=== PATIENT | female | born 1975 | race African-American/Black ===

== ENCOUNTER 2017-11-26 19:08 | Emergency (ER) | payer OTHER ==
[~2017-11-26] VITALS: Ht 165.1 cm; Wt 82.6 kg
[~2017-11-26 19:08] MED LIST: ERYTHROMYC1 APPLICAT RIGHT EYE; MUCUS RELIEF600 M1 PO; NOHOMEMEDS
[2017-11-26 20:07] LABS: BASOPHIL (%) 0.4 % (0-1); EOSINOPHIL (%) 2.6 % (0-5); EOSINOPHIL COUNT 0.3 K/uL (0-0.3); HEMATOCRIT 28.3 % (36.0-46.0); HEMOGLOBIN 9.4 G/DL (11.9-15.5); IMMATURE GRANULOCYTE (%) 0.3 % (0.0-0.7); LYMPHOCYTE (%) 15.1 % (15-42); LYMPHOCYTE COUNT 1.4 K/uL (1.0-2.8); MCH 26.7 PG (29.0-34.0); MCHC 33.2 G/DL (30.0-36.0); MCV 80.4 FL (83-99); MONOCYTE (%) 7.3 % (3-12); MONOCYTE COUNT 0.7 K/uL (0-0.8); NEUTROPHIL (%) 74.3 % (45-76); NEUTROPHIL COUNT 7.1 K/uL (1.8-6.4); PLATELET COUNT 243 K/uL (156-360); RBC DIS.WIDTH-CV 14.2 % (11.8-14.6); RBC DIS.WIDTH-SD 41.5 % (39-53); RED BLOOD COUNT 3.52 M/uL (3.80-5.20); WHITE BLOOD COUNT 9.5 K/uL (4.1-10.2)
[2017-11-26 20:19] LABS: APPEARANCE SL.HAZY ((CLEAR)); BILIRUBIN NEGATIVE; BLOOD NEGATIVE; COLOR YELLOW ((YELLOW)); GLUCOSE (STRIP) NEGATIVE; KETONES 20; LEUKOCYTES NEGATIVE; NITRITE NEGATIVE; PROTEIN (STRIP) 30; UROBILINOGEN 0.2 MG/DL (0.2-1.0)
[2017-11-26 20:20] LABS: ALBUMIN 3.8 g/dL (3.2-4.8); CHLORIDE 104 mEq/L (99-109); POTASSIUM 3.8 mEq/L (3.7-5.4); SODIUM 137 mEq/L (136-147)
[2017-11-26 20:22] LABS: GLUCOSE 105 mg/dL (70-99); TOTAL PROTEIN 7.4 g/dL (6.4-8.3)
[2017-11-26 20:24] LABS: TOTAL BILIRUBIN 0.3 mg/dL (0.0-1.0)
[2017-11-26 20:26] LABS: ALKALINE PHOSPHATASE 53 IU/L (3-129); CREATININE 0.6 mg/dL (0.6-1.3); GFR ESTIMATE (CALCULATED) > 59 mL/min/
[2017-11-26 20:27] LABS: AST (GOT) 41 IU/L (2-34); UREA NITROGEN (BUN) 15 mg/dL (9-23)
[2017-11-26 20:29] LABS: ALT (GPT) 43 IU/L (3-49)
[2017-11-26 20:38] LABS: TROP-I INTERPRETATION NEGATIVE; TROPONIN-I < 0.01 ng/mL (0.0-0.30)
[2017-11-26 20:58] LABS: BACTERIA 1+ /HPF; EPITHELIAL CELLS 1+ /HPF; MUCUS NONE SEEN /LPF; RED BLOOD CELLS 0-5 /HPF (0-5); UCUL ADDED? NO; WHITE BLOOD CELLS 0-5 /HPF (0-5)
[2017-11-27 00:25] VITALS: BP 113/51
== END 2017-11-27 00:52 | disposition home or self-care (01) ==
LOC: EME 19:08
PROVIDERS: Physician Assistant
DX: O12.02 Gestational edema, second trimester (principal); O99.89 Other specified diseases and conditions complicating pregnancy, childbirth and the puerperium; R01.1 Cardiac murmur, unspecified; R51 Headache; R03.0 Elevated blood-pressure reading, without diagnosis of hypertension; O99.012 Anemia complicating pregnancy, second trimester; D64.9 Anemia, unspecified; Z53.20 Procedure and treatment not carried out because of patient's decision for unspecified reasons; Z3A.18 18 weeks gestation of pregnancy; Z88.0 Allergy status to penicillin; Z87.891 Personal history of nicotine dependence
CPT/HCPCS: 71046; 80053; 81003; 83880; 84484; 85025; 93005; 93970; 99281; 99285

== ENCOUNTER 2017-12-04 09:34 | Emergency (ER) | payer OTHER ==
[~2017-12-04] VITALS: Ht 165.1 cm; Wt 82.2 kg
[2017-12-04 10:41] LABS: HEMOGLOBIN 8.6 G/DL (11.9-15.5); MCHC 33.1 G/DL (30.0-36.0); MCV 81.5 FL (83-99); PLATELET COUNT 231 K/uL (156-360); RBC DIS.WIDTH-CV 14.1 % (11.8-14.6); RBC DIS.WIDTH-SD 41.6 % (39-53); RED BLOOD COUNT 3.19 M/uL (3.80-5.20)
[2017-12-04 10:52] LABS: CHLORIDE 107 mEq/L (99-109); POTASSIUM 4.2 mEq/L (3.7-5.4); SODIUM 137 mEq/L (136-147)
[2017-12-04 10:53] LABS: GLUCOSE 81 mg/dL (70-99)
[2017-12-04 10:57] LABS: CREATININE 0.6 mg/dL (0.6-1.3); GFR ESTIMATE (CALCULATED) > 59 mL/min/
[2017-12-04 10:58] LABS: UREA NITROGEN (BUN) 8 mg/dL (9-23)
[2017-12-04 11:02] LABS: TROP-I INTERPRETATION NEGATIVE; TROPONIN-I < 0.01 ng/mL (0.0-0.30)
[2017-12-04 11:19] VITALS: BP 114/61
== END 2017-12-04 11:34 | disposition home or self-care (01) ==
LOC: EME 09:34
PROVIDERS: Emergency Medicine
DX: O99.89 Other specified diseases and conditions complicating pregnancy, childbirth and the puerperium (principal); R07.9 Chest pain, unspecified; R05 Cough; R51 Headache; O09.512 Supervision of elderly primigravida, second trimester; Z3A.20 20 weeks gestation of pregnancy; Z88.0 Allergy status to penicillin; Z87.891 Personal history of nicotine dependence
CPT/HCPCS: 80048; 84484; 85027; 93005; 99281; 99284